=== PATIENT | female | born 1950 | race Caucasian/White ===

== ENCOUNTER 2017-10-26 20:34 | Emergency (ER) | payer MEDICAID ==
[2017-10-26 20:39] VITALS: TEMP 98.1
[2017-10-26] MEDS ORDERED: AMOXICILLIN/CLAVULANATE POT 875/125 MG TAB PO ONE (21:14)
--- NOTE | 2017-10-26 21:14 | EDPHY ---
H & P Time Seen by Provider: 10/26/17 20:53 HPI/ROS: CHIEF COMPLAINT: Cough and losing her voice HISTORY OF PRESENT ILLNESS: This 66-year-old woman moved from [place] to [place] about a year ago. She had an identical episode this year in January where she had a cough and lost her voice. She feels like there is "something on my focal cords "and keeps coughing to drink clear throat subsequently lose her voice. She saw ENT and scoped and had negative chest x- ray and saw an regulatory and compliance technician and primary care and finally got Augmentin and her symptoms went away. She was doing well until she moved from [place] to [place] month ago. Her symptoms reoccurred. She is nonproductive dry cough and feels like there is something caught in her throat. She started losing her voice about 3 weeks ago. She has a mild sore throat from coughing. REVIEW OF SYSTEMS: Eye: no change in vision ENT: HPI Cardiac: no chest pain or syncope Pulmonary: HPI Abdomen: no vomiting, diarrhea, abdominal pain Musculoskeletal: no back pain Skin: no rash Neuro: no headache Constitutional: no fever or weight loss or night sweats : no urinary symptoms A comprehensive 10 point review of systems is otherwise negative aside from elements mentioned in the history of present illness. PAST MEDICAL HISTORY: Negative Social history: Nonsmoker, no primary care provider General Appearance: Alert and conversant, cooperative. Eyes: No scleral icterus. ENT, Mouth: Normal mucous membranes. No angioedema, no trismus, no drooling or stridor. She is losing her voice. Normal tympanic membranes. Uvula is midline. Respiratory: Normal respiratory effort, breath sounds equal, lungs are clear to auscultation. No wheezing. Cardiovascular: Regular rate and rhythm. Gastrointestinal: Abdomen is soft and non tender. Neurological: Alert and oriented x3. Normally conversant. Face symmetric, normal movement and sensation in all extremities. Skin: Warm and dry, no rashes. Musculoskeletal: No peripheral edema and no joint swelling. No calf tenderness. Psychiatric: Not agitated. Emergency Department course/MDM: Does not have evidence of airway compromise. Has had previous evaluation with ENT and chest x-ray. She would like to try Augmentin because of worked in the past which I think is reasonable. Discharged with ENT and primary care follow-up locally. Heart rate 80-90 on my exam. Ambulatory, does not look toxic. Smoking Status: Never smoked Constitutional: Initial Vital Signs Temperature (C) 36.7 C 10/26/17 20:35 Heart Rate 102 H 10/26/17 20:35 Respiratory Rate 20 10/26/17 20:35 Blood Pressure 151/93 H 10/26/17 20:35 O2 Sat (%) 95 10/26/17 20:35 O2 Delivery Mode Room Air Allergies/Adverse Reactions: No Known Allergies Allergy (Unverified 10/26/17 20:39) Home Medications: Medication Instructions Recorded Amoxicillin/Clavulanate Pot 875 mg PO BID #13 tab 10/26/17 [Augmentin 875 mg tab] Effexor Xr 10/26/17 IRON 10/26/17 MDM/Departure - MDM Medications Given: Discontinued Medications Amoxicillin/Clavulanate Potassium (Augmentin 875mg) 875 mg PO EDNOW ONE PRN Reason: Protocol Stop: 10/26/17 21:15 Last Admin: 10/26/17 21:18 Dose: 875 mg - Depart Disposition: Home, Routine, Self-Care Clinical Impression: Laryngitis Condition: Good Instructions: Laryngitis (ED) Additional Instructions: Please follow-up next week with primary care clinic referral or ENT. Prescriptions: Amoxicillin/Clavulanate Pot [Augmentin 875 mg tab] 875 mg PO BID #13 tab Referrals: [facility],. [Clinic] - As per Instructions Javi Calle MD [Medical Doctor] - As per Instructions
[2017-10-26 21:28] VITALS: BP 148/84; PULSE 86; RESP 18; O2SAT 94
== END 2017-10-26 21:25 | disposition home or self-care (01) ==
DX: J04.0 Acute laryngitis (principal)

== ENCOUNTER 2018-04-11 19:19 | Observation (INO) | payer OTHER, MEDICAID ==
--- NOTE | 2018-04-11 19:47 | CPEKG ---
Heart Rate: 73 RR Interval: 822 P-R Interval: 140 QRSD Interval: 82 QT Interval: 412 QTC Interval: 454 P [place]: 46 QRS [place]: 32 T Wave [place]: 47 EKG Severity - NORMAL ECG - EKG Impression: SINUS RHYTHM Electronically Signed By: Savi Mars 11-Apr-2018 23:02:35
[2018-04-11] MEDS ORDERED: ASPIRIN 81 MG CHEWABLE TAB PO ONE (20:10)
--- NOTE | 2018-04-11 20:10 | EDPHY ---
H & P Stated Complaint: CP, dizziness. Started today. Time Seen by Provider: 04/11/18 19:35 HPI/ROS: CHIEF COMPLAINT: Chest pain HISTORY OF PRESENT ILLNESS: 67-year-old female presents with chest pain. Onset chest pressure this afternoon. The pressure was initially mild, but then gradually increased and is currently 6/10. The pain waxes and wanes and radiates to the back and the right arm. Associated with dizziness. No change with exertion, deep inspiration or movement. History of prior similar episodes , but not this severe. Cardiac risk factors positive for family history (father of [place] at 50yo). REVIEW OF SYSTEMS: complete 10 point ROS negative except at noted in the HPI - Personal History Current Tetanus/Diphtheria Vaccine: Unsure Current Tetanus Diphtheria and Acellular Pertussis (TDAP): Unsure - Medical/Surgical History Hx Asthma: No Hx Chronic Respiratory Disease: No Hx Diabetes: No Hx Cardiac Disease: No Hx Renal Disease: No Hx Cirrhosis: No Hx Alcoholism: No Hx HIV/AIDS: No Hx Splenectomy or Spleen Trauma: No Other PMH: depression, appendectomy, cholecystectomy, "weight surgery" - Social History Smoking Status: Never smoked - Physical Exam Exam: General Appearance: Alert, pleasant, obese Eyes: Pupils equal and round, no conjunctival pallor or injection ENT, Mouth: Mucous membranes moist Neck: Normal inspection Respiratory: Lungs are clear to auscultation Cardiovascular: Regular rate and rhythm, 2/6 systolic murmur Gastrointestinal: Abdomen is soft and nontender Neurological: A&O, nonfocal exam Skin: Warm and dry, no rash Extremities: No tenderness Psychiatric: Mood and affect normal Constitutional: Initial Vital Signs Temperature (C) 37.2 C 04/11/18 19:25 Heart Rate 89 04/11/18 19:25 Respiratory Rate 20 04/11/18 19:25 Blood Pressure 143/85 H 04/11/18 19:25 O2 Sat (%) 97 04/11/18 19:25 O2 Delivery Mode Room Air Allergies/Adverse Reactions: No Known Allergies Allergy (Verified 04/11/18 19:24) Home Medications: Medication Instructions Recorded Venlafaxine Xr [Effexor Xr] 150 mg PO HS 10/26/17 Ergocalciferol [Vitamin D2 (*)] 50,000 unit PO TU@09 04/11/18 hydrOXYzine HCL [hydrOXYzine HCL 25 mg PO HS PRN 05/23/18 (RX)] Medical Decision Making - Diagnostics EKG Interpretation: EKG interpreted by me reveals normal sinus rhythm, rate 73, no ST or T segment changes. Interpretation: Normal EKG Imaging Results: Chest x-ray independently reviewed by me reveals an elevated right hemidiaphragm , NAD. ED Course/Re-evaluation: This patient presents with chest pain, concerning for acute coronary syndrome. Stat EKG reveals no evidence of ischemia or dysrhythmia. Initial troponin is normal. Heart score is 3. Aspirin given. I feel this patient should be admitted for further cardiac evaluation. She has ongoing chest discomfort, new heart murmur and unclear etiology of chest pain. I do not suspect acute pulmonary embolism, with normal vital signs, oxygen saturation and negative D- dimer. Chest x-ray reveals no evidence of pneumothorax or pneumonia. The hospitalist service was consulted for admission. Patient stable throughout her emergency department stay. Addendum: In review of this pt's chart, after my shift and evaluation by hospitalist, this pt decided to leave [facility]. Differential Diagnosis: Differential diagnosis includes though it is not limited to pneumonia, pneumothorax, pulmonary embolism, aortic dissection, pericarditis, acute coronary syndrome. - Data Points Laboratory Results: Laboratory Results 04/11/18 19:47 04/11/18 19:47 Medications Given: Discontinued Medications Aspirin (Aspirin) 324 mg PO EDNOW ONE Stop: 04/11/18 20:11 Last Admin: 04/11/18 20:21 Dose: 324 mg Nitroglycerin (Nitrostat) 0.4 mg SL EDNOW ONE Stop: 04/11/18 21:01 Last Admin: 04/11/18 21:16 Dose: 0.4 tab Departure - Departure Disposition: Against Medical Advice Clinical Impression: Chest pain Qualifiers: Chest pain type: precordial pain Qualified Code(s): R07.2 - Precordial pain Condition: Fair
[2018-04-11 20:13] LABS: PLATELET COUNT 283 10^3/uL (150-400)
[2018-04-11] MEDS: NITROGLYCERIN 0.4 MG BTL SL ONE ×2 (21:05→21:16)
[2018-04-11 21:54] VITALS: BP 141/75
[2018-04-11] MEDS ORDERED: ACETAMINOPHEN 325 MG TAB PO PRN (22:15)
[2018-04-11] MEDS ORDERED: ONDANSETRON 4 MG/2 ML VIAL IVP PRN (22:15)
[2018-04-11] MEDS ORDERED: ONDANSETRON DISINTEGRATING 4 MG TAB PO PRN (22:15)
--- NOTE | 2018-04-12 01:12 | PDGENHP ---
History and Physical - Chief Complaint Chest pain - History of Present Illness 67 yo F w/ no significant PMHx p/w chest pain. Patient reports 05/29 central chest pain w/ radiation to the back lasting several hours. She has had pain like this in the past but never this severe. She presented to the ED as a result. The pain started at rest and had no relation to exertion. She dose state that the pain resolved after she received a second NTG in the emergency department. Her father of an [place] in his 50's; she is a never smoker. History Information - Allergies/Home Medication List Allergies/Adverse Reactions: No Known Allergies Allergy (Verified 04/11/18 19:24) Home Medications: Venlafaxine Xr [Effexor Xr] 150 mg PO HS 10/26/17 [Last Taken 04/10/18] Ergocalciferol [Vitamin D2 (*)] 50,000 unit PO TU@09 04/11/18 [Last Taken ] hydrOXYzine HCL [hydrOXYzine HCL (RX)] 25 mg PO HS PRN 04/11/18 [Last Taken ] I have personally reviewed and updated: family history, medical history - Past Medical History no pertinent PMH - Surgical History Reports: appendectomy, cholecystectomy Additional surgical history: R TKA - Family History Positive for: CAD, father with history of CAD younger than 55 - Social History Smoking Status: Never smoked Review of Systems Review of Systems: ROS: 10pt was reviewed & negative except for what was stated in HPI & below Physical Exam Physical Exam: Temp Pulse Resp BP Pulse Ox 36.7 C 71 16 141/75 H 96 04/11/18 21:53 04/11/18 21:53 04/11/18 21:53 04/11/18 21:53 04/11/18 21:53 O2 (L/minute) 2 Constitutional: no apparent distress, obese Eyes: PERRL, EOMI Ears, Nose, Mouth, Throat: moist mucous membranes, no oral mucosal ulcers Cardiovascular: regular rate and rhythym, systolic murmur (3/6 systolic @ RUSB) Respiratory: no respiratory distress, clear to auscultation Gastrointestinal: normoactive bowel sounds, soft, non-tender abdomen Skin: warm, normal color Musculoskeletal: full muscle strength, no muscle tenderness Neurologic: AAOx3, CN II-XII Intact Psychiatric: interacting appropriately, not anxious Lab Data & Imaging Review 04/11/18 19:47 04/11/18 19:47 WBC 6.60 10^3/uL (3.80-9.50) 04/11/18 19:47 RBC 4.35 10^6/uL (4.18-5.33) 04/11/18 19:47 Hgb 12.4 g/dL (12.6-16.3) L 04/11/18 19:47 Hct 39.9 % (38.0-47.0) 04/11/18 19:47 MCV 91.7 fL (81.5-99.8) 04/11/18 19:47 MCH 28.5 pg (27.9-34.1) 04/11/18 19:47 MCHC 31.1 g/dL (32.4-36.7) L 04/11/18 19:47 RDW 13.2 % (11.5-15.2) 04/11/18 19:47 Plt Count 283 10^3/uL (150-400) 04/11/18 19:47 MPV 11.2 fL (8.7-11.7) 04/11/18 19:47 Neut % (Auto) 57.5 % (39.3-74.2) 04/11/18 19:47 Lymph % (Auto) 28.2 % (15.0-45.0) 04/11/18 19:47 [place] % (Auto) 10.8 % (4.5-13.0) 04/11/18 19:47 Eos % (Auto) 2.4 % (0.6-7.6) 04/11/18 19:47 Baso % (Auto) 0.8 % (0.3-1.7) 04/11/18 19:47 Nucleat RBC Rel Count 0.0 % (0.0-0.2) 04/11/18 19:47 Absolute Neuts (auto) 3.80 10^3/uL (1.70-6.50) 04/11/18 19:47 Absolute Lymphs (auto) 1.86 10^3/uL (1.00-3.00) 04/11/18 19:47 Absolute Monos (auto) 0.71 10^3/uL (0.30-0.80) 04/11/18 19:47 Absolute Eos (auto) 0.16 10^3/uL (0.03-0.40) 04/11/18 19:47 Absolute Basos (auto) 0.05 10^3/uL (0.02-0.10) 04/11/18 19:47 Absolute Nucleated RBC 0.00 10^3/uL (0-0.01) 04/11/18 19:47 Immature Gran % 0.3 % (0.0-1.1) 04/11/18 19:47 Immature Gran # 0.02 10^3/uL (0.00-0.10) 04/11/18 19:47 D-Dimer 0.31 ug/mLFEU (0.00-0.50) 04/11/18 19:47 Sodium 142 mEq/L (135-145) 04/11/18 19:47 Potassium 4.5 mEq/L (3.3-5.0) 04/11/18 19:47 Chloride 109 mEq/L (97-110) 04/11/18 19:47 Carbon Dioxide 23 mEq/l (22-31) 04/11/18 19:47 Anion Gap 10 mEq/L (8-16) 04/11/18 19:47 BUN 13 mg/dL (7-23) 04/11/18 19:47 Creatinine 0.8 mg/dL (0.6-1.0) 04/11/18 19:47 Estimated GFR > 60 04/11/18 19:47 Glucose 74 mg/dL (70-100) 04/11/18 19:47 Calcium 7.4 mg/dL (8.5-10.4) L 04/11/18 19:47 Troponin I < 0.012 ng/mL (0.000-0.034) 04/11/18 19:47 NT-Pro-B Natriuret Pep 130 pg/mL (0-125) H 04/11/18 19:00 Imaging Review: Imaging Impressions Chest X-Ray 04/11/18 19:35 Impression: 1. No active cardiopulmonary disease seen. Visualized and Interpreted Chest x-ray results: Yes Chest X-Ray results: no infiltrate Visualized and Interpreted EKG results: Yes EKG Interpretation: Positive for: normal sinsus rhythm, NS ST wave abnormalities , other (J point elevation V2) Assessment & Plan Assessment: 67 yo F p/w chest pain. Plan: 1. Chest pain - Atypical in that pain started at rest and had no relation to exertion. Concerning aspects are obesity, age, positive family history, and relief of pain w/ NTG x2. Work-up thus far unremarkable for acute ischemia. - Admit for observation - Trend cardiac enzymes, monitor on telemetry - Treadmill stress ordered for the morning although patient is considering leaving AMA Diet - NPO @ MI Code - Full Ppx - LMWH Dispo - Admit to PCU under observation status
[2018-04-12] MEDS ORDERED: ENOXAPARIN 60 MG/0.6 ML SYR SC SCH (09:00)
== END 2018-04-12 00:37 | disposition left against medical advice (07) ==
LOC: F2W 21:50
PROVIDERS: ADMIT Internal Medicine; ATTEND Internal Medicine
DX: R07.2 Precordial pain (principal); M54.9 Dorsalgia, unspecified
CPT/HCPCS: 71046; 93005; G0378